=== PATIENT | female | born 1970 | race Caucasian/White ===

== ENCOUNTER 2020-10-31 13:11 | Outpatient (CLI) | payer MEDICARE, MEDICAID, SELFPAY ==
--- NOTE | 2020-10-31 13:24 | MM_ITS ---
WS: [id number] BILATERAL SCREENING DIGITAL MAMMOGRAM WITH CAD HISTORY: SCREENING COMPARISON: 04/03/2019 and 03/23/2018 Bilateral CC and MLO views submitted. Computer aided detection analyzed. Breast composition: There are scattered areas of fibroglandular density. No suspicious masses, microc alcifications or architectural distortion. MM/[id number] IMPRESSION: BI-RADS: 1-Negative FOLLOW UP: 1 Year Follow-up
== END 2020-10-31 13:12 | disposition home or self-care (01) ==
LOC: RADSHAW 13:20
PROVIDERS: Family Provider Family Medicine; PCP Family Medicine; Visit Provider Family Medicine
DX: Z12.31 Encounter for screening mammogram for malignant neoplasm of breast (principal)
CPT/HCPCS: 77067

== ENCOUNTER → 2021-07-16 10:35 | Outpatient (BNVA) | payer MEDICARE, MEDICAID, SELFPAY | PROVIDERS: Family Provider Family Medicine; PCP Family Medicine; Visit Provider Surgery | DX: K21.9 Gastro-esophageal reflux disease without esophagitis (principal); Z20.822 Contact with and (suspected) exposure to COVID-19 | CPT/HCPCS: 87635 ==

== ENCOUNTER 2021-07-22 06:55 | Day surgery (SDC) | payer MEDICARE, MEDICAID, SELFPAY ==
[2021-07-20 09:55] VITALS: BMI 28.3
--- NOTE | 2021-07-22 07:37 | ANES.PREANE2 ---
Pre-Anesthetic Assessment Height/Weight: Height 1.52 m Weight 65.771 kg Preop Diagnosis: diagnostic Operation Date: 07/22/21 08:45 Proposed Procedures p Colonoscopy 10934/r19.7(Not Applicable) - Vikas Maldonado MD Familial anesthetic complications: None Was Beta Angelika taken within 24 hours: N/A Was Clonidine taken within 24 hours: N/A Last intake: 07/21/21 Social No alcohol and No tobacco Exam alert, oriented x 3 and regular rate & rhythm B/l wheezing Airway Submandibular: within normal limits Cervical ROM: within normal limits Mallampati: Class II Comments: Comments: Missing teeth History/ROS No significant complaints Pulmonary Chronic Obstructive Pulmonary Disease and Exertional Dyspnea CV/HEM METS = 4 Hx of PE on anticoagulation lass dose 07/19/21 per patient cause unknown None reported GI Gastroesophageal Reflux Disease Reflux with fluid regurgitation on empty stomach Metabolic None reported Musc/skel None reported Neuropsych Hx of brain tumor w/ partial resection through nasocranial approach. Followed every 6 months. Denies stroke or seizure. Anesthetic Plan ASA status: 3 Other: I discussed with the patient risks, goals, and benefits of MAC and general anesthesia. We discussed spectrum of MAC anesthesia including conversion to general as well as possibility of recall of intraoperative stimuli including discomfort/pain. Patient agrees to proceed with MAC. Risk of > 500 ml blood loss (7ml/kg in children): No Other Pertinent Information Hx of alpha gal syndrome Medications/Allergies Home Medications Medication Instructions Recorded Confirmed Last Taken Type diphenhydramine HCl 25 mg capsule 25 mg PO ONCE PRN cap 04/27/19 07/20/21 Unknown History (Allergy (diphenhydramine)) hyoscyamine sulfate 0.125 mg tablet 0.125 mg PO DAILY #30 tab 03/24/20 07/20/21 Unknown Rx acetaminophen 325 mg tablet 325 mg PO QID PRN 06/16/21 07/20/21 Unknown History (Tylenol) apixaban 2.5 mg tablet (Eliquis) 2.5 mg PO BID 06/16/21 07/20/21 Unknown History escitalopram oxalate 10 mg tablet 10 mg PO DAILY 06/16/21 07/20/21 Unknown History (Lexapro) gabapentin 600 mg tablet 600 mg PO DAILY 06/16/21 07/20/21 Unknown History guaifenesin 600 mg tablet, 600 mg PO BID 06/16/21 07/20/21 Unknown History extended release 12 hr (Mucinex) hydrocodone 5 mg-acetaminophen 325 1 tab PO BID PRN 06/16/21 07/20/21 Unknown History mg tablet lamotrigine 100 mg tablet 100 mg PO DAILY 06/16/21 07/20/21 Unknown History levothyroxine 50 mcg capsule 50 mcg PO DAILY 06/16/21 07/20/21 Unknown History lithium carbonate 300 mg capsule 300 mg PO BID 06/16/21 07/20/21 Unknown History loratadine 10 mg tablet (Allergy 10 mg PO DAILY 06/16/21 07/20/21 Unknown History Relief (loratadine)) metoclopramide HCl 5 mg tablet 5 mg PO DAILY 06/16/21 07/20/21 Unknown History (Reglan) oxybutynin chloride 5 mg tablet 5 mg PO DAILY 06/16/21 07/20/21 Unknown History topiramate 15 mg sprinkle capsule 75 mg PO DAILY 06/16/21 07/20/21 Unknown History Allergies Allergy/AdvReac Type Severity Reaction Status Date / Time clonazepam [From Klonopin] Allergy Unknown Verified 07/20/21 09:49 alpha gal Allergy Unknown Uncoded 07/20/21 10:01 [facility] Anesthesia Medical History Bipolar disease, chronic Celiac disease Chronic constipation Diverticulosis GERD (gastroesophageal reflux disease) Surgical History History of esophagogastroduodenoscopy (EGD) History of surgical removal of ganglion cyst S/P appendectomy S/P colonoscopy S/P hysterectomy S/P sinus surgery Social History Smoking and tobacco status: never smoked Alcohol intake: never Data Anesthesia Cardiac Studies: No Data to Display
[2021-07-22 07:52] VITALS: BP 123/69; PULSE 62; RESP 16; TEMP 35.7; O2SAT 97
[2021-07-22] MEDS: sodium chloride 0.9% 1,000 ML 30 ML IV (07:57)
--- NOTE | 2021-07-22 08:36 | P.HP_ITS ---
Same Day Surgery H&P Indication for Procedure/HPI DATE OF PROCEDURE: July 22, 2021 CHIEF COMPLAINT/INDICATIONFOR SURGICAL PROCEDURE: chronic diarrhea PREOP DIAGNOSIS: diagnostic PLANNED PROCEDURE: Operation Date: 07/22/21 08:45 Proposed Procedures p Colonoscopy 91343/r19.7(Not Applicable) - Vikas Maldonado MD Medications/Allergies* Home Medications Medication Instructions Recorded Confirmed Type diphenhydramine HCl 25 mg capsule 25 mg PO ONCE PRN cap 04/27/19 07/20/21 H istory (Allergy (diphenhydramine)) acetaminophen 325 mg tablet 325 mg PO QID PRN 06/16/21 07/22/21 History (Tylenol) apixaban 2.5 mg tablet (Eliquis) 2.5 mg PO BID 06/16/21 07/22/21 History escitalopram oxalate 10 mg tablet 10 mg PO DAILY 06/16/21 07/22/21 History (Lexapro) gabapentin 600 mg tablet 600 mg PO DAILY 06/16/21 07/22/21 History guaifenesin 600 mg tablet, 600 mg PO BID 06/16/21 07/22/21 History extended release 12 hr (Mucinex) hydrocodone 5 mg-acetaminophen 325 1 tab PO BID PRN 06/16/21 07/20/21 History mg tablet lamotrigine 100 mg tablet 100 mg PO DAILY 06/16/21 07/22/21 History levothyroxine 50 mcg capsule 50 mcg PO DAILY 06/16/21 07/22/21 History lithium carbonate 300 mg capsule 300 mg PO BID 06/16/21 07/22/21 History loratadine 10 mg tablet (Allergy 10 mg PO DAILY 06/16/21 07/22/21 History Relief (loratadine)) metoclopramide HCl 5 mg tablet 5 mg PO DAILY 06/16/21 07/22/21 History (Reglan) oxybutynin chloride 5 mg tablet 5 mg PO DAILY 06/16/21 07/22/21 History topiramate 15 mg sprinkle capsule 75 mg PO DAILY 06/16/21 07/22/21 History Allergies/Adverse Reactions Allergy/AdvReac Type Severity Reaction Status Date / Time clonazepam [From Klonopin] Allergy Unknown Verified 07/20/21 09:49 alpha gal Allergy Unknown Uncoded 07/20/21 10:01 Current Medications: Generic Name Dose Route Start Last Admin Trade Name Freq PRN Reason Stop Dose Admin Sodium Chloride 1,000 mls @ 30 mls/hr 07/22/21 07:30 07/22/21 07:57 Sodium Chloride 0.9% IV 07/23/21 07:29 30 mls/hr .Q24H JANET Administration Pertinent History/Comorbid Conditions* Medical History (Updated 06/16/21 @ 10:37 by Vikas Maldonado MD) Bipolar disease, chronic Celiac disease Chronic constipation Diverticulosis GERD (gastroesophageal reflux disease) Surgical History (Updated 06/16/21 @ 10:37 by Vikas Maldonado MD) History of esophagogastroduodenoscopy (EGD) History of surgical removal of ganglion cyst S/P appendectomy S/P colonoscopy S/P hysterectomy S/P sinus surgery Social History Smoking and tobacco status: never smoked Alcohol intake: never Pertinent Exam Findings alert, oriented x 3 and regular rate & rhythm Recommendations Surgery/Procedure today Coding Level of Care Code Acute [employer] Financial [employer] for [facility] [place]
--- NOTE | 2021-07-22 09:34 | ANE.PACU2 ---
Inpatient post-anesthesia follow up: Airway intact: Yes Vital signs: Temperature 96.3 F Pulse Rate 62 Respiratory Rate 16 Blood Pressure 123/69 Pulse Oximetry 97 Oxygen Delivery Me thod Room Air Oxygen Flow Rate Fraction of Inspir ed Oxygen Hydration adequate: Yes Nausea and vomiting: No Pain level: 1 Mental status: Baseline
[2021-07-22 09:35] VITALS: BP 128/54; PULSE 66; RESP 16; TEMP 36.4; O2SAT 92
[2021-07-22 09:43] VITALS: BP 127/62; PULSE 59; RESP 16; TEMP 36.3; O2SAT 96
--- NOTE | 2021-07-22 16:06 | ANE.PACU2 ---
Inpatient post-anesthesia follow up: Airway intact: Yes Vital signs: Temperature 97.4 F Pulse Rate 59 Respiratory Rate 16 Blood Pressure 127/62 Pulse Oximetry 96 Oxygen Delivery Me thod Room Air Oxygen Flow Rate Fraction of Inspir ed Oxygen Hydration adequate: Yes Nausea and vomiting: No Pain level: 1 Mental status: Baseline
== END 2021-07-22 10:03 | disposition home or self-care (01) ==
PROVIDERS: Family Provider Family Medicine; PCP Family Medicine; Visit Provider Surgery
PROC: 0DJD8ZZ Inspection of Lower Intestinal Tract, Via Natural or Artificial Opening Endoscopic (ICD-10-PCS; CPT 45378; principal; 2021-07-22 08:45)
DX: K52.9 Noninfective gastroenteritis and colitis, unspecified (principal); D12.4 Benign neoplasm of descending colon; K57.30 Diverticulosis of large intestine without perforation or abscess without bleeding; J44.9 Chronic obstructive pulmonary disease, unspecified; Z86.711 Personal history of pulmonary embolism; K21.9 Gastro-esophageal reflux disease without esophagitis
CPT/HCPCS: 45380; 82274; 83630; 87493; 87506; 88305; J1100; J1200; J2704; J7030

== ENCOUNTER → 2021-07-27 09:09 | Outpatient (BNVA) | payer MEDICARE, MEDICAID, SELFPAY | PROVIDERS: Family Provider Family Medicine; PCP Family Medicine; Visit Provider Surgery | DX: Z09 Encounter for follow-up examination after completed treatment for conditions other than malignant neoplasm (principal) | CPT/HCPCS: 99212 ==

== ENCOUNTER → 2023-05-31 12:41 | Outpatient (BNVA) | payer MEDICARE, MEDICAID, SELFPAY | PROVIDERS: Family Provider Family Medicine; Visit Provider Psychiatry & Neurology Psychiatry | DX: Z79.899 Other long term (current) drug therapy (principal) | CPT/HCPCS: 80053; 80061; 83036; 84443; 85025 ==